=== PATIENT | male | born 1930 | race Caucasian/White ===

== ENCOUNTER 2021-05-06 11:33 | Emergency (ER) | payer MEDICARE ==
[~2021-05-06 11:33] MED LIST: Calcium Chloride 1 GM/10 ML Abboject SYRINGE ONE; Dextrose 50% Abboject 50 ML SYRINGE ONE; Sodium Bicarb 50 MEQ/50 ML Abboject 8.4% SYRINGE ONE
== END 2021-05-06 11:34 | disposition expired ==
LOC: MADERS 11:33
DX: I46.9 Cardiac arrest, cause unspecified (principal); I49.01 Ventricular fibrillation; I21.9 Acute myocardial infarction, unspecified; E11.9 Type 2 diabetes mellitus without complications; I10 Essential (primary) hypertension; Z87.891 Personal history of nicotine dependence; Z79.899 Other long term (current) drug therapy
CPT/HCPCS: 92950; 96374; 96375